=== PATIENT | male | born 1990 | race Caucasian/White ===

== ENCOUNTER 2021-04-25 10:16 | Outpatient (REF) | payer OTHER, SELFPAY ==
--- NOTE | ~2021-04-25 | XR_ITS ---
EXAMINATION: XR SHOULDER, LEFT CLINICAL INFORMATION: Pain in the left shoulder COMPARISON: None TECHNIQUE: AP external rotation, Grashey, scapular Y, and axillary views of the left shoulder. FINDINGS: The bones and soft tissues are normal. No fracture. Glenohumeral and acromioclavicular alignment is anatomic with normal joint space. No abnormal soft tissue calcifications. XR/XR shoulder LT min 2V IMPRESSION: No acute osseous abnormality of the left shoulder.
[2021-04-25 11:40] LABS: Alanine Aminotransferase 26 U/L (0-40); Albumin Level 4.4 g/dL (3.5-5.0); Alkaline Phosphatase 85 U/L (39-117); Anion Gap 10 (12-20); Aspartate Amino Transferase 23 U/L (5-37); Bilirubin Total 1.3 mg/dL (0.0-1.0); Blood Urea Nitrogen 17 mg/dL (9-16); Carbon Dioxide 26 mmol/L (22-29); Chloride 105 mmol/L (96-108); Cholesterol 143 mg/dL; Estimated Glomerular Filt Rate > 60; Glucose Fasting 89 mg/dL (60-99); HDL Cholesterol 57 mg/dL; LDL Cholesterol Calculated 79 mg/dl; Potassium 4.3 mmol/L (3.3-5.1); Sodium 137 mmol/L (135-145); Total Protein 7.1 g/dL (6.5-8.0); Triglycerides 38 mg/dL
[2021-04-25 11:48] LABS: Appearance Urine CLEAR; Color Urine YELLOW; Glucose Urine UA NEG (NEG); Leukocyte Esterase Urine NEG (NEG); Nitrite Urine NEG (NEG); Urine Blood NEG (NEG); Urine Ketones NEG (NEG); Urine Protein NEG (NEG-TRACE)
[2021-04-25 12:01] LABS: TSH reflex Free T4 0.89 uIU/mL (0.32-4.0)
== END 2021-04-25 10:17 | disposition home or self-care (01) ==
LOC: HO.HMGCX 10:16
PROVIDERS: PCP Nurse Practitioner Family; Visit Provider Nurse Practitioner Family
DX: Z00.00 Encounter for general adult medical examination without abnormal findings (principal); M25.512 Pain in left shoulder
CPT/HCPCS: 36415; 73030; 80053; 80061; 81003; 84443

== ENCOUNTER 2021-06-21 11:00 | Outpatient (RCR) | payer OTHER, SELFPAY ==
--- NOTE | 2021-05-14 11:30 | MHC.PT.EP ---
[facility] [place] [facility] [place] [facility] [place] [facility] [address] [phone] F: [phone] F: [phone] F: [phone] F: [phone] Physical Therapy Plan of Care Date of Evaluation: Date of Surgery: Diagnosis: This is a 31 yo male presenting to skilled PT with a script for pain in the L shoulder. Assessment: Patient reporting ongoing L shoulder pain for about 3-4 months. No injury noted. He is RHD. Pain is located anterior capsule and scapulae. He reports an uncomfortable clicking in the ? scapular region. He has some tingling in the scapular region as well. Anterior shoulder pain is described as sharp. 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 He enjoys weight lifting and playing rugby for the . He will be getting deployed in Nov. or Dec. Assessment reveals pain that ranges up to a 6/10. He demos decreased B shoulder ROM, decreased B scapular strength and decreased L shoulder strength, impaired thoracic joint mobility (hypomobile), TTP at medial border of scap on the L as well as gross functional decline with overhead movements and lifting. He has audible grinding with IR. He would benefit from posterior deltoid strengthening, scapular retraining and RTC strengthening. He is a good candidate for skilled PT 2x/wk for 5wks. 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 Manual therapy to restore motion and function. Therapeutic exercise to improve strength and flexibility. Neuromuscular re-education for posture and balance. Therapeutic activities to return to functional activities of daily living. Electronically signed by: Shannen Rodriguez PT Please sign and return to therapist. Thank you for your referral.
--- NOTE | 2021-06-21 12:51 | MHC.PT.DC ---
[facility] [place] [facility] [place] [facility] [place] [facility] [address] [phone] F: [phone] F: [phone] F: [phone] F: [phone] Physical Therapy Discharge Report Diagnosis: This is a 31 yo male presenting to skilled PT with a script for pain in the L shoulder. 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 Educated on avoiding IR and adducted as this causes grinding. Has an HEP to continue and educated on strengthening rotator cuff appropriately. DC to HEP as patient is being deployed. Electronically signed by: Shannen Rodriguez PT Please sign and return to therapist. Thank you for your referral.
== END 2021-06-21 12:52 | disposition home or self-care (01) ==
LOC: HO.PTCHIC 11:00
PROVIDERS: PCP Nurse Practitioner Family; Visit Provider Nurse Practitioner Family
DX: M25.512 Pain in left shoulder (principal)
CPT/HCPCS: 97110; 97140; 97161